=== PATIENT | female | born 1980 | race Caucasian/White ===

== ENCOUNTER 2016-07-28 21:18 | Emergency (ER) | payer OTHER ==
[~2016-07-28] VITALS: Ht 162.6 cm; Wt 113.6 kg
[2016-07-28 21:27] VITALS: BP 128/81; PULSE 74; RESP 24; O2SAT 100
[2016-07-28] MEDS ORDERED: 0.9% Sodium Chloride 1,000 ML IV ONE (21:42)
--- NOTE | 2016-07-28 21:46 | ED.REPORT ---
HPI-Preg Under 20 Weeks Date of Service Jul 28, 2016 ED Provider: Ofe Ambrocio MD Patient is a 35 year old female who is approximately 8-10 weeks presents to the ED complaining of severe pelvic pain and vaginal bleeding that began this evening. The patient states that she first developed cramping pain 2 weeks ago, but that it was mild. Tonight her cramps are much more severe than what she has ever experienced with a menstrual period. Patient states that she first developed mild vaginal bleeding that started 4 days ago. However, the bleeding nearly halted until tonight. She has filled a whole pad with blood, with additional blood whenever she goes to the bathroom. Patient was see by her physician 3 days ago and this morning. Her last HCG was 17,000 today, with a prior HCG of 13,000 2 days ago. The patient states that her first was high-risk, with the patient on bed rest after 24 weeks. She did not have any bleeding during her previous . She admits to nausea but denies fever, vomiting or dysuria. Nursing Notes Stated Complaint: , SEVERE BLEEDING AND CRAMPING Chief Complaint: Female Abdominal Pain Nursing Notes Reviewed: Yes Allergies: Coded Allergies: No Known Allergies (Unverified , 07/28/16) General Time Seen by Provider: 21:50 Chief Complaint Abdominal cramping, Vaginal bleeding Hx Obtained From: Patient Arrived By: Walk-in Onset Occurred: 5 - 8 hours ago Symptom Duration: Since onset Progression Since Onset: Gradually worsening Location: : Abdomen lower Quality: Cramping Severity: Current: Severe Severity: Maximum: Severe Recent Healthcare: No recent hospitalization, Recent doctor visit Similar Sx Previous: Yes Past Medical History Past Medical History (twin ), 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 Past Surgical History none reported Smoking History Unknown if Ever Smoker Social History Other Social History: Good social support, , Lives with children, Local resident Ambulatory Status Independent Review of Systems Constitutional: Denies: Fever GI: Reports: Abdominal pain, Nausea, Denies: Vomiting Female: Reports: Pelvic pain, , Vaginal bleeding - abnl, Denies: Dysuria Complete sys rev & neg: except as marked. Physical Exam Initial Vital Signs Vital Signs (First) Date Time Temp Pulse Resp B/P Pulse Ox O2 Delivery O2 Flow Rate FiO2 07/28/16 21:27 36.4 74 24 128/81 100 Room Air Initial VS: Reviewed Head / Eyes: Atraumatic, Normocephalic, PERRL ENT: Mucous membranes moist, Conjunctiva normal, No scleral icterus Neck: Supple, Full range of motion Respiratory: Breath sounds normal, Clear to auscultation, No respiratory distress Cardiovascular: Regular rate & rhythm, Heart sounds normal Extremities: Vascular intact, Neuro intact, No swelling Skin: Warm, Dry, No cyanosis Neurologic: Alert, Oriented, Nonfocal Psychiatric: Mood/affect normal, Behavior normal, Normal thought content General/Constitutional: Awake, Alert Appearance / Presentation: Positive: Obese, Uncomfortable Abdomen: Soft, Non-tender, No guarding, No rebound Female Genitourinary: Shrimp Packer present (ROSALIND Brown) Vaginal Bleeding / Discharge: Positive: Bleeding severe (large amount of blood in the vault), Clots present Pelvic Exam: Positive: Os is open (finger tip open) : Exam deferred (not indicated) Interpretation & Diagnostics US PELVIS TRANSABDOMINAL AND TRANSVAGINAL CONCLUSION: There is an irregular gestational sac in the lower uterine segment with a pole that demonstrates no cardiac activity suggesting a miscarriage in progress. There is heterogeneous material in endometrial cavity superior to this suggesting it may represent blood blot. Radiologist: Gordon Beatty MD 07/28/2016 - 11:00:28 PM PDT Lab Results Interpretation Result Diagram: 07/28/16214707/28/162147 Test 07/28/16 21:48 07/28/16 22:29 White Blood Count 11.0th/mm3 (3.8-10.1) Red Blood Count 4.48mil/mm3 (3.90-5.20) Hemoglobin 12.9g/dL (12.0-15.6) Hematocrit 38.4% (35.0-46.0) Mean Corpuscular Volume 85.7fL (81-100) Mean Corpuscular Hemoglobin 28.8pg (27.0-35.0) Mean Corpuscular Hemoglobin Concent 33.6% (32.0-37.0) Red Cell Distribution Width 13.5% (12.3-15.4) Platelet Count 304bil/L (150-400) Sodium Level 137mEq/L (134-144) Potassium Level 3.6mEq/L (3.5-5.2) Chloride Level 101mEq/L (97-108) Carbon Dioxide Level 19mmol/L (18-29) Blood Urea Nitrogen 10mg/dL (6-20) Creatinine 0.59mg/dL (0.57-1.00) Estimat Glomerular Filtration Rate 167mL/min (>59) Glucose Level 105mg/dL (60-99) Calcium Level 9.2mg/dL (8.5-10.1) Total Bilirubin 0.3mg/dL (0.0-1.2) Aspartate Amino Transf (AST/SGOT) 20U/L (0-50) Alanine Aminotransferase (ALT/SGPT) 18U/L (0-32) Alkaline Phosphatase 76U/L (25-150) Total Protein 7.2g/dL (6.4-8.4) Albumin 4.2g/dL (3.4-5.0) HCG Beta Subunit 9412mIU/mL Urine Color Dark yellow (YELLOW) Urine Appearance Slightly cloudy Urine pH 5.5 (5.0-8.0) Urine Specific [place] 1.020 (1.003-1.035) Urine Protein Negativemg/dL (NEG,TRACE) Urine Glucose (UA) Negativemg/dL (NEGATIVE) Urine Ketones Negativemg/dL (NEGATIVE) Urine Occult Blood Large (NEGATIVE) Urine Nitrite Negative (NEGATIVE) Urine Bilirubin Negative (NEGATIVE) Urine Urobilinogen Normalmg/dL (NORMAL) Urine Leukocyte Esterase Trace (NEGATIVE) Urine RBC >50/hpf (0-2) Urine WBC 0-5/hpf (0-5) Urine Epithelial Cells Moderate/hpf (NONE-MOD) Urine Crystals None seen (NONE SEEN) Urine Bacteria Few/hpf (NONE-FEW) Urine Hyaline Casts None/lpf (NONE) Urine Granular Casts None seen (NONE SEEN) Urine Waxy Casts None seen (NONE SEEN) Urine Red Blood Cell Casts None seen (NONE SEEN) Urine White Blood Cell Casts None seen (NONE SEEN) Urine Mucus Present (None Seen) Urine Trichomonas None seen (NONE SEEN) Urine Yeast None (NONE SEEN) Urinalysis Comment None Urine Culture Reflexed Indicated Re-Eval/Medical Decision Med Decision/Clinical Course 35 year-old (twin ) here with vaginal bleeding at approximately 8- 10 weeks . She also has cramping. Differential diagnosis includes but is not limited to ectopic versus inevitable versus missed AB versus subchorionic hemorrhage. Patient does not show any evidence of anemia on CBC, though she does have mild leukocytosis, likely secondary to stress. Her beta Quant is dropping, most consistent with miscarriage. Ultrasound showed heterogeneous vascular uterus with likely gestational sac in the lower segment of the uterus most consistent with inevitable miscarriage. There was no heart tones. Patient was advised that she is most likely having a miscarriage and will likely be passing large clots and tissue over the next several days. She has an appointment scheduled tomorrow with her FINANCIAL DEVELOPER. She was given strict return precautions, along with a prepack of [place] to go home with. She is aware and amenable to discharge at this time. Source of Hx: Old records Re-Evaluation/Progress : Time of Eval: 23:19 Re-Evaluation/Progress Note: Rechecked the patient. Discussed the results of the ultrasound, with the finding of a miscarriage in progress. The Patient understands and agrees with the plan to be discharged home. Discharge instructions and follow-up discussed. All questions were addressed. Return to the ED warnings given. Counseled Regarding: Diagnosis, Lab results, Need for follow-up, When/why to return to ED Discharge & Departure Primary Impression: Spontaneous miscarriage Disposition: Home Discharge Condition All VS Reviewed: Yes Condition: Stable Patient Instructions: Spontaneous Miscarriage (ED) Additional Instructions: The ultrasound showed that you are in the process of having a miscarriage. It is likely that you will continue to pass blood and tissue for several days Take [place] as directed for pain. Do not take Tylenol with this medication. Alternatively you can take 800mg Ibuprofen every 8 hours as needed for pain. This is helpful for cramping. Follow-up with your FINANCIAL DEVELOPER tomorrow as planned. Return to the emergency department if you become lightheaded, dizzy, have worsening abdominal pain, persistent bleeding, or any other concerning symptoms. Referrals: [facility] Scribe Attestation Portions of this note were transcribed by Kelley Chung. I, Dr. Ambrocio personally performed the history, physical exam and medical decision-making; I reviewed and confirmed the accuracy of the information in the transcribed note. Signed by: Yamel Trujillo, 07/28/2016 2051 Ofe Ambrocio MD Jul 28, 2016 21:46 Kelley Chung Jul 28, 2016 21:54
[2016-07-28] MEDS ORDERED: HYDROmorphone 1 mg/mL Inj IVPUSH ONE (22:00)
[2016-07-28 22:03] LABS: Mean Corpuscular Hemoglobin 28.8 pg (27.0-35.0); Mean Corpuscular Volume 85.7 fL (81-100)
[2016-07-28 22:39] LABS: APPEARANCE,URINE SLIGHTLY CLOUDY (CLEAR,HAZY); COLOR,URINE DARK YELLOW (YELLOW); OCCULT BLOOD,URINE LARGE (NEGATIVE); PH,URINE 5.5 (5.0-8.0); UROBILINOGEN,URINE NORMAL (NORMAL)
[2016-07-28] MEDS ORDERED: _HYDROcodone/APAP 5-325 mg Tablet PO PRN (23:25)
[2016-07-29 00:05] VITALS: BP 138/73; PULSE 77; RESP 16; O2SAT 96
[2016-07-29 00:07] VITALS: BP 138/73; PULSE 77; RESP 16; O2SAT 96
--- NOTE | 2016-07-29 09:45 | DRSVH ---
PROCEDURE: US PELVIC SONOGRAM + TRANSVAGINAL SONOGRAM INDICATIONS: preg vag bleed TECHNIQUE: Real-time scanning was performed of the pelvic organs, with image documentation. Additional endovagi nal scanning was necessary due to incomplete visualization of the adnexal and endometrial structures by transabdominal scanning. COMPARISON: None. FINDINGS: Uterus size: 12.04 cm, 4.95 cm Right ovary size: 2.87 cm, 1.93 cm Left ovary size: 1.94 cm, 2.01 cm, 1.99 cm Transabdominal scanning: Limited scanning through the kidneys shows no hydronephrosis. No pathologi c free abdominal or pelvic fluid. Endovaginal scanning: Uterus: Uterus is normal in size and appearance. Endometrium is thickened containing complex materi al likely clot. Gestational saclike fluid collection positioned within the lower uterine segment/cer vix with mean sac diameter measuring roughly 6 weeks 5 days. Probable pole is noted equivalent to 6 weeks 1 day. No heart tone seen. Ovaries: Within normal physiologic limits. IMPRESSION: Findings most consistent with spontaneous in progress. Recommend clinical corre lation. Note: These findings are concordant with the preliminary interpretation. Dictated by: Joel CHAKRABORTY Interpreted: Valentina Florence MD on 07/29/2016 at 9:43 Transcribed by: HALI on 07/29/2016 at 9:45 Approved by: Valentina Florence M.D. on 07/29/2016 at 21:42
== END 2016-07-28 23:56 | disposition home or self-care (01) ==
LOC: SED 21:18
DX: O03.9 Complete or unspecified spontaneous abortion without complication (principal); O21.0 Mild hyperemesis gravidarum; Z3A.01 Less than 8 weeks gestation of pregnancy
CPT/HCPCS: 36415; 76830; 76856; 80053; 81000; 81025; 84702; 85027; 87086; 87088; 96361; 96374; 99285; J1170; J7030